=== PATIENT | female | born 1990 | race Caucasian/White ===

== ENCOUNTER 2021-02-06 18:19 | Emergency (ER) | payer BC ==
[~2021-02-06] VITALS: Ht 167.6 cm; Wt 68.5 kg
[2021-02-06 18:33] VITALS: BP 132/75
[2021-02-06] MEDS ORDERED: TRAM50TA2 PO (19:14)
== END 2021-02-06 19:54 | disposition home or self-care (01) ==
LOC: ER 18:40
DX: S90.01XA Contusion of right ankle, initial encounter (principal); S90.31XA Contusion of right foot, initial encounter; Z88.1 Allergy status to other antibiotic agents; Z79.899 Other long term (current) drug therapy; W18.39XA Other fall on same level, initial encounter; Y93.89 Activity, other specified; Y92.89 Other specified places as the place of occurrence of the external cause; Y99.8 Other external cause status
CPT/HCPCS: 73610-TC; 73630-TC